=== PATIENT | male | born 1965 | race Two or more races ===

== ENCOUNTER → 2020-05-18 | Outpatient (CLI) | payer OTHER ==
[~2020-05-18] MED LIST: CONTRAST GIVEN. MC PRN; IOHEXOL 240 MG/ML 50ML VIAL. PO ONE; IOHEXOL 300 MG/ML 100ML VIAL. IV ONE
--- NOTE | 2020-05-19 09:34 | RAD ---
PQRS Compliance Statement: One or more of the following individualized dose reduction techniques were utilized for this examinat ion: 1. Automated exposure control 2. Adjustment of the mA and/or kV according to patient size 3. Use of iterative reconstruction technique CT ABDOMEN+PELVIS W Clinical Indication: Reason: CHRONIC DIARRHEA, LLQ PAIN, PELVIC PAIN Comparison: None. Technique: Helical CT imaging of the abdomen and pelvis is performed after 75 cc of Omnipaque 300 IV contrast. Oral contrast also administered. Findings: There is minimal atelectasis or scarring in the inferior lingula. Lung bases otherwise clear. Cardiac size normal. There is mild fatty infiltration of the liver, focal fatty sparing along the gallbladder fossa. Gallb ladder is contracted. The spleen, pancreas, adrenal glands, abdominal aorta, and kidneys are normal. There is no obvious abnormality of the stomach. There is no dilated small bowel. The appendix is norm al. There is no colon wall thickening. No abdominal adenopathy or free fluid. Urinary bladder is normal. Prostate and seminal vesicles are normal. No pelvic free fluid. No inguina l adenopathy. There is bilateral os acetabuli. No acute bone abnormality. IMPRESSION: 1. No acute abdominal or pelvic abnormality. 2. Mild fatty infiltration of the liver. Electronically signed by: Placido Maya MD (05/19/2020 9:32 AM) [id number]
== END ==
LOC: CT 09:36
PROVIDERS: ATTEND Family Medicine
DX: K76.0 Fatty (change of) liver, not elsewhere classified (principal); N32.89 Other specified disorders of bladder; K52.9 Noninfective gastroenteritis and colitis, unspecified; R10.2 Pelvic and perineal pain
CPT/HCPCS: 74177; Q9966; Q9967